=== PATIENT | male | born 1960 | race Caucasian/White ===

== ENCOUNTER 2017-03-13 10:54 | Emergency (ER) | payer MEDICARE ==
[~2017-03-13] VITALS: Ht 175.3 cm; Wt 66.0 kg
[~2017-03-13 10:54] MED LIST: TAMS5CAP PO; TRUV200300 PO; VIAG100T PO; [UNRECOGNIZED DRUG - CODE] PO
[2017-03-13 11:00] VITALS: BP 151/80; PULSE 56; RESP 16; TEMP 97.6; O2SAT 98
[2017-03-13] MEDS ORDERED: ACYC800T PO (11:28)
[2017-03-13] MEDS ORDERED: EMTR1TAB4 PO (11:28)
[2017-03-13] MEDS ORDERED: BACT800T5 PO (11:36)
--- NOTE | 2017-03-13 11:36 | PD ---
HPI Chief Complaint: Skin Problem Time Seen by Provider: 11:27 Travel History International Travel<30 days: No Contact w/Intl Traveler<30days: No Traveled to known affect area: No History of Present Illness HPI The patient is a 56-year-old male who presents emergency department for an abscess to the anterior aspect the left leg. The patient states he had a small inflamed area there are several days ago, however, last night it significantly enlarged. He does note occasional drainage from the area, however , now notes it stopped draining. He does note the surrounding skin is erythematous and tender to palpation. He denies any fever, chills, or sweats. He denies any history of recurrent MRSA infections. Symptoms are mild to moderate without any alleviating or exacerbating factors. The pain is described as moderate, sharp, and aching. PFSH Past Medical History Hx Anticoagulant Therapy: No Cardiovascular Problems: No Chemotherapy: No Cerebrovascular Accident: No Diabetes: No Diminished Hearing: No Immune Disorder: Yes (HIV) Respiratory: No Past Surgical History Tonsillectomy: Yes Social History Alcohol Use: No Tobacco Use: Yes (1/2 PPD) Substance Use: Yes (MARIJUANA) Allergies-Medications (Allergen,Severity, Reaction): Coded Allergies: No Known Allergies (Unverified , 04/08/16) Reported Meds & Prescriptions Reported Meds & Active Scripts Active Bactrim DS (Sulfamethoxazole-Trimethoprim) 800-160 Mg Tab 1 Tab PO BID Reported Descovy (Emtricitabine-Tenofovir Alafenamide) 200-25 mg Tab 1 Tab PO DAILY Acyclovir 800 Mg Tab 800 Mg PO DAILY Nevirapine ER (Nevirapine) 100 Mg Tab 400 Mg PO DAILY Review of Systems General / Constitutional: No: Fever Musculoskeletal: Positive: Pain Skin: Positive Other (as noted in the history of present illness) Neurologic: No: Paresthesia, Sensory Disturbance Hematologic/Lymphatic: Positive: Other (history of HIV, last CD4 count was 356 , currently on antivirals and followed by Dr. Potts) Physical Exam Narrative GENERAL: Awake, alert, nontoxic-appearing 56-year-old male who appears his stated age and is in no acute respiratory distress. SKIN: Focused skin assessment warm/dry. The patient has an abscess over the anterior aspect of the proximal left thigh that measures 2.5 cm in diameter with some surrounding erythema. HEAD: Atraumatic. Normocephalic. EYES: Pupils equal and round. No scleral icterus. No injection or drainage. ENT: No nasal bleeding or discharge. Mucous membranes pink and moist. NECK: Trachea midline. No JVD. MUSCULOSKELETAL: No obvious deformities. No clubbing. No cyanosis. No edema. 2.5 cm abscess over the anterior aspect of the left thigh with some surrounding erythema. NEUROLOGICAL: Awake and alert. No obvious cranial nerve deficits. Motor grossly within normal limits. Normal speech. PSYCHIATRIC: Appropriate mood and affect; insight and judgment normal. Data Data Last Documented VS Vital Signs Date Time Temp Pulse Resp B/P (MAP) Pulse Ox O2 Delivery O2 Flow Rate FiO2 03/13/17 11:00 97.6 56 16 151/80 (103) 98 Orders Orders Wound Culture And Gram Stain (03/13/17 11:31) Lidocaine 1% Inj (50 Ml) (Xylocaine 1% I (03/13/17 11:45) Sulfamet-Trimeth Ds 800-160 Mg (Bactrim (03/13/17 11:45) MDM Medical Decision Making Medical Screen Exam Complete: Yes Emergency Medical Condition: Yes Medical Record Reviewed: Yes Differential Diagnosis Differential diagnosis includes abscess, cellulitis, infected wound, carbuncle, ingrown hair. Narrative Course The patient's abscess was draped and prednisone with sterile fashion, anesthetized 1% lidocaine with a 27-gauge needle, clean with Betadine, and opened using a #11 incisional blade. A culture was obtained. The patient is advised to have warm compresses to the affected area, take Bactrim as directed, to follow-up with his primary physician. Procedures Procedure Narrative After the risks and benefits were discussed the following procedure was performed: INCISION AND DRAINAGE OF ABSCESS: The area was prepped and was sterilely draped. A subcutaneous wheal of 1 % Xylocaine with a total number 3 mL was used to anesthetize the area. The area was properly anesthetized. A number 11 scalpel was used to make a 1.5-cm incision across the area of the abscess. Cultures were obtained. The abscess was drained an irrigated with normal saline. Diagnosis Primary Impression: Abscess of leg, left Patient Instructions: General Instructions Additional Instructions: Medications as directed. Follow-up with your primary physician. Return if symptoms worsen or progress. Warm compresses daily. Med/Other Pt SpecificInfo: Prescription(s) given Scripts Sulfamethoxazole-Trimethoprim (Bactrim DS) 800-160 Mg Tab 1 TAB PO BID for Infection, #14 TAB 0 Refills Prov: Luisito Cook MD 03/13/17 Disposition: 01 DISCHARGE HOME Condition: Stable Luisito Cook MD Mar 13, 2017 11:36
[2017-03-13] MEDS ORDERED: LIDOCAINE HCL 1% 50 ML VIAL INFIL ONE (11:45)
[2017-03-13] MEDS ORDERED: SULFAMETHOXAZOLE-TRIMETHOPRIM DS 800-160 MG TAB PO ONE (11:45)
== END 2017-03-13 12:12 | disposition home or self-care (01) ==
LOC: PHEFT 10:54
DX: L02.416 Cutaneous abscess of left lower limb (principal); B95.61 Methicillin susceptible Staphylococcus aureus infection as the cause of diseases classified elsewhere; F17.200 Nicotine dependence, unspecified, uncomplicated
CPT/HCPCS: 10060; 86403; 87070; 87186; 87205

== ENCOUNTER 2017-03-31 10:52 | Emergency (ER) | payer MEDICARE, MEDICAID ==
[~2017-03-31] VITALS: Ht 175.3 cm; Wt 67.0 kg
[~2017-03-31 10:52] MED LIST changes: +ACYC800T PO; +BACT800T5 PO; +EMTR1TAB4 PO; -TAMS5CAP PO; -TRUV200300 PO; -VIAG100T PO
[2017-03-31 11:00] VITALS: BP 161/79; PULSE 68; RESP 16; TEMP 98; O2SAT 99
[2017-03-31] MEDS ORDERED: IBUPROFEN 800 MG TAB PO ONE (11:15)
[2017-03-31] MEDS ORDERED: SULFAMETHOXAZOLE-TRIMETHOPRIM DS 800-160 MG TAB PO ONE (11:15)
[2017-03-31] MEDS ORDERED: CEPHALEXIN MONOHYDRATE 500 MG CAP PO ONE (11:15)
--- NOTE | 2017-03-31 11:18 | PD ---
HPI Chief Complaint: Skin Problem Time Seen by Provider: 11:05 Travel History International Travel<30 days: No Contact w/Intl Traveler<30days: No Traveled to known affect area: No History of Present Illness HPI 56-year-old male with history of HIV presents the emergency department with question cellulitis versus early abscess to the left anterior groin. Patient was recently seen here with drainage from similar area 2 weeks ago treated with Bactrim DS by mouth twice a day. Patient states it seemed to improve recently he's developed this recurrent issue. He denies fever, chills, or drainage. It is quite uncomfortable due to where it is on his anterior groin area. He has no urinary symptoms or testicular pain. Pain is currently about an 8 out of 10. He has no known drug allergies. PFSH Past Medical History Hx Anticoagulant Therapy: No Cardiovascular Problems: No Chemotherapy: No Cerebrovascular Accident: No Diabetes: No Diminished Hearing: No Immune Disorder: Yes (HIV) Medical other: Yes (SHINGLES) Respiratory: No Influenza Vaccination: Yes Past Surgical History Tonsillectomy: Yes Social History Alcohol Use: No Tobacco Use: Yes (2 PP WEEK) Substance Use: Yes (MARIJUANA) Allergies-Medications (Allergen,Severity, Reaction): Coded Allergies: No Known Allergies (Unverified Adverse Reaction, Unknown, 03/31/17) Reported Meds & Prescriptions Reported Meds & Active Scripts Active Bactrim DS (Sulfamethoxazole-Trimethoprim) 800-160 Mg Tab 1 Tab PO BID Reported Descovy (Emtricitabine-Tenofovir Alafenamide) 200-25 mg Tab 1 Tab PO DAILY Acyclovir 800 Mg Tab 800 Mg PO DAILY Nevirapine ER (Nevirapine) 100 Mg Tab 400 Mg PO DAILY Review of Systems Except as stated in HPI: all other systems reviewed are Neg General / Constitutional: No: Fever Eyes: No: Visual changes HENT: No: Headaches Cardiovascular: No: Chest Pain or Discomfort Respiratory: No: Shortness of Breath Gastrointestinal: No: Abdominal Pain Genitourinary: No: Dysuria Musculoskeletal: No: Pain Skin: Positive Lesions (see history present illness), No Rash Neurologic: No: Weakness Psychiatric: No: Depression Endocrine: No: Polydipsia Hematologic/Lymphatic: No: Easy Bruising Physical Exam Narrative GENERAL: Patient appears in mild distress. SKIN: Warm and dry. Normal color. Normal turgor. Patient has erythematous area on the left anterior groin lateral to the inguinal fold measuring approximately 6 cm x 4 cm with local induration, warmth, and tenderness. There is no obvious large abscess noted. There is no pointing. Previous abscess drainage area is well-healed. HEAD: Atraumatic. Normocephalic. EYES: Pupils equal and round. No scleral icterus. No injection or drainage. ENT: No nasal bleeding or discharge. Mucous membranes pink and moist. NECK: Trachea midline. No JVD. CARDIOVASCULAR: Regular rate and rhythm. RESPIRATORY: No accessory muscle use. Clear to auscultation. Breath sounds equal bilaterally. MUSCULOSKELETAL: Extremities without clubbing, cyanosis, or edema. No obvious deformities. NEUROLOGICAL: Awake and alert. No obvious cranial nerve deficits. Motor grossly within normal limits. Five out of 5 muscle strength in the arms and legs. Normal speech. PSYCHIATRIC: Appropriate mood and affect; insight and judgment normal. Data Data Last Documented VS Vital Signs Date Time Temp Pulse Resp B/P (MAP) Pulse Ox O2 Delivery O2 Flow Rate FiO2 03/31/17 11:00 98.0 68 16 161/79 (106) 99 Orders Orders Cephalexin (Keflex) (03/31/17 11:15) Sulfamet-Trimeth Ds 800-160 Mg (Bactrim (03/31/17 11:15) Ibuprofen (Motrin) (03/31/17 11:15) MDM Medical Decision Making Medical Screen Exam Complete: Yes Emergency Medical Condition: Yes Medical Record Reviewed: Yes Differential Diagnosis Cellulitis. Recurrent abscess. MRSA. Narrative Course Discussed I&D with patient but he is requesting a trial of oral antibiotics and hot packs first. Patient is given Bactrim DS by mouth now. Patient is given Keflex 500 mg by mouth now. Patient is given ibuprofen 800 mg now. Patient will be continued on Bactrim DS twice a day 10 days. Patient continued on Keflex 500 mg 3 times a day 10 days. Patient continued on ibuprofen 800 mg 3 times daily with food #30. Patient is to apply hot packs to the area as discussed. Patient will follow-up with his primary care physician on Tuesday or return here if symptoms worsen as discussed. Diagnosis Primary Impression: Cellulitis of groin, left Referrals: Primary Care Physician 3 days Patient Instructions: Cellulitis (ED), General Instructions Additional Instructions: Patient will be continued on Bactrim DS twice a day 10 days. Patient continued on Keflex 500 mg 3 times a day 10 days. Patient continued on ibuprofen 800 mg 3 times daily with food #30. Patient is to apply hot packs to the area as discussed. Patient will follow-up with his primary care physician on Tuesday or return here if symptoms worsen as discussed. Med/Other Pt SpecificInfo: Prescription(s) given Disposition: DISCHARGE HOME Condition: Stable Barrington Bermudez Mar 31, 2017 11:18
[2017-03-31] MEDS ORDERED: IBUP1TAB7 PO (11:20)
[2017-03-31] MEDS ORDERED: CEPH-460 PO (11:20)
[2017-03-31] MEDS ORDERED: BACT800T5 PO (11:20)
== END 2017-03-31 11:39 | disposition home or self-care (01) ==
LOC: PHEFT 10:52
DX: L03.314 Cellulitis of groin (principal); F17.200 Nicotine dependence, unspecified, uncomplicated; Z21 Asymptomatic human immunodeficiency virus [HIV] infection status
CPT/HCPCS: 99284